=== PATIENT | male | born 1970 | race Caucasian/White ===

== ENCOUNTER 2018-01-02 18:51 | Emergency (ER) | payer OTHER ==
[2018-01-02] MEDS ORDERED: BUFFERED LIDOCAINE 10 ML SYRINGE ONE (21:43)
[2018-01-02] MEDS ORDERED: BUFFERED LIDOCAINE 10 ML SYRINGE SUBQ STA (21:44)
--- NOTE | 2018-01-02 21:51 | XRAY Report ---
Reason: saw injury Procedure Date: 01/02/2018 Accession Number: [id number] / [id number] Procedure: XR - Finger(s) RT CPT Code: FULL RESULT: EXAM: RIGHT FIRST DIGIT RADIOGRAPHY EXAM DATE: 01/02/2018 09:38 PM. CLINICAL HISTORY: Laceration to distal right first digit, table saw injury. COMPARISON: None. TECHNIQUE: 3 views. FINDINGS: Bones: Normal. No fracture or bone lesion. Joints: Normal. No subluxations. Soft Tissues: Soft tissue laceration at the palmar aspect of the distal first digit. No radiopaque foreign body. IMPRESSION: No radiopaque foreign body or acute osseous abnormality. [facility]
[2018-01-02 22:20] VITALS: BP 136/83
--- NOTE | 2018-01-02 22:38 | ED Physician Documentation ---
History of Present Illness - Stated complaint Stated Complaint: R THUMB INJ - Chief complaint Chief Complaint: Laceration - History obtained from History obtained from: Patient - Additonal information Additional information: 47-year-old male presents the emergency department with a laceration to his right thumb which occurred this evening at home just prior to arrival. The patient injured his hand on a table saw blade. The patient denies loss of function. The patient denies any other area of injury. Symptoms are described as moderate. Bleeding is currently controlled. No other associated symptoms Review of Systems Constitutional: denies: Fever Cardiac: denies: Chest pain / pressure Respiratory: denies: Dyspnea GI: denies: Abdominal Pain Skin: reports: Laceration (s) Musculoskeletal: denies: Joint pain Neurologic: denies: Generalized weakness Immunocompromised: denies: Chemotherapy PD PAST MEDICAL HISTORY - Past Medical History Past Medical History: No - Past Surgical History Past Surgical History: No - Present Medications Home Medications: Ambulatory Orders Medication Instructions Recorded Confirmed No Known Home Medications [No 01/02/18 01/02/18 Known Home Medications] - Allergies Allergies/Adverse Reactions: Allergies Allergy/AdvReac Type Severity Reaction Status Date / Time No Known Drug Allergies Allergy Verified 01/02/18 18:57 - Social History Does the pt smoke?: No Smoking Status: Never smoker Does the pt drink ETOH?: No Does the pt have substance abuse?: No - Immunizations Immunizations are current?: Yes - POLST Patient has POLST: No PD ED PE NORMAL - General General: Alert and oriented X 3, No acute distress - HEENT HEENT: Atraumatic, PERRL, EOMI, Ears normal - Derm Derm: Other (1 cm laceration on the volar tip of the thumb) - Extremities Extremities: Other (The patient has a laceration on the volar tip of his right thumb, there is no obvious foreign body defect. The patient has full active range of motion of all the fingers in the right hand. The patient has normal sensation light touch there is no obvious bony deformity. On examination there is no evidence of tendon or ligamentous injury. The patient has normal cap refill and a normal radial pulse) - Neuro Neuro: Alert and oriented X 3 - Psych Psych: Normal affect Results - Vitals Vitals: Vital Signs - 24 hr 01/02/18 01/02/18 18:55 22:19 Temperature 36.2 C L Heart Rate 92 72 Respiratory 16 16 Rate Blood Pressure 146/92 H 136/83 H O2 Saturation 98 99 Oxygen O2 Source Room air - Rads (name of study) Finger Radiology: Final report received (No fracture or foreign body) Procedures - Laceration (location) Hand right Length in cm: 1 Wound type: Linear Neurovascular status: Sensory intact, Motor intact, Vascular intact Tendon involvement: No: Tendon intact, Tendon Injury Anesthesia: Lidocaine 1% Wound Preparation: Betadine, Irrigated copiously NS, Wound explored, To the base. No: FB identified, FB removed Skin layer closure: Nylon, Interrupted Other: Patient tolerated well, No complications, Dressing applied, Tetanus UTD Complexity: Simple PD MEDICAL DECISION MAKING - ED course ED course: The patient's laceration was closed, the sutures were loosely approximated since the wound was quite wide secondary to the table spell blade removing a significant amount of tissue. There is no evidence of tendon or ligamentous injury. The patient will follow up with orthopedics for recheck. I discussed warning signs and recommended returning to the emergency department for any worsening or any concerns - Sepsis Event Vital Signs: Vital Signs - 24 hr 01/02/18 01/02/18 18:55 22:19 Temperature 36.2 C L Heart Rate 92 72 Respiratory 16 16 Rate Blood Pressure 146/92 H 136/83 H O2 Saturation 98 99 Oxygen O2 Source Room air Departure - Departure Disposition: 01 Home, Self Care Clinical Impression: Thumb laceration Qualifiers: Encounter type: initial encounter Damage to nail status: without damage Foreign body presence: without foreign body Laterality: unspecified laterality Qualified Code(s): S61.019A - Laceration without foreign body of unspecified thumb without damage to nail, initial encounter Condition: Good Instructions: ED Laceration All Follow-Up: Rosa Armenta MD [Provider Admit Priv/Credential] - Within 1 week Comments: Please follow-up with orthopedics for recheck of your thumb injury. Please have your sutures removed in 7-10 days. Please return to the emergency department immediately for worsening or any concerns Discharge Date/Time: 01/02/18 22:46
== END 2018-01-02 22:46 | disposition home or self-care (01) ==
LOC: ED 18:51
DX: S61.011A Laceration without foreign body of right thumb without damage to nail, initial encounter (principal); W31.2XXA Contact with powered woodworking and forming machines, initial encounter; Y92.009 Unspecified place in unspecified non-institutional (private) residence as the place of occurrence of the external cause
CPT/HCPCS: 12001; 73140; 99282; 99283